=== PATIENT | female | born 1990 | race Caucasian/White ===

== ENCOUNTER 2017-08-02 06:09 | Emergency (ER) | payer SELFPAY | END 2017-08-02 07:16 | disposition home or self-care (01) | LOC: MADERS 06:09 | DX: J06.9 Acute upper respiratory infection, unspecified (principal); F17.210 Nicotine dependence, cigarettes, uncomplicated | CPT/HCPCS: 99283 ==

== ENCOUNTER 2017-09-01 08:34 | Emergency (ER) | payer SELFPAY ==
[2017-09-01] MEDS ORDERED: AMOXicillin 250 MG CAP ONE (09:00)
[2017-09-01] MEDS ORDERED: Naproxen 500 MG TAB ONE (09:00)
== END 2017-09-01 09:03 | disposition home or self-care (01) ==
LOC: MADERS 08:34
DX: K04.7 Periapical abscess without sinus (principal)
CPT/HCPCS: 99282

== ENCOUNTER 2018-02-10 15:31 | Emergency (ER) | payer SELFPAY ==
[2018-02-10] MEDS ORDERED: methylPREDNISolone Sod Succ/PF 125 MG/2 ML VIAL ONE (15:53)
[2018-02-10] MEDS ORDERED: Amoxicillin/Potassium Clav 875 MG TAB ONE (15:53)
== END 2018-02-10 16:12 | disposition home or self-care (01) ==
LOC: MADERS 15:31
DX: J20.9 Acute bronchitis, unspecified (principal); F17.210 Nicotine dependence, cigarettes, uncomplicated
CPT/HCPCS: 96374; J2930

== ENCOUNTER 2018-02-28 14:50 | Emergency (ER) | payer SELFPAY ==
[2018-02-28] MEDS ORDERED: Naproxen 500 MG TAB ONE (15:19)
== END 2018-02-28 15:40 | disposition home or self-care (01) ==
LOC: MADERS 14:50
DX: L50.0 Allergic urticaria (principal); F17.210 Nicotine dependence, cigarettes, uncomplicated
CPT/HCPCS: 96372; J1040

== ENCOUNTER 2018-11-07 08:18 | Emergency (ER) | payer SELFPAY ==
--- NOTE | 2018-11-07 09:16 | RAD ---
NECK SOFT TISSUES TWO VIEWS: INDICATIONS: Fall with neck injury. Throat pain. FINDINGS: The prevertebral soft tissue stripe is normal in caliber. The epiglottis is of appropriate caliber. No abnormal distention of the hypopharyngeal airway. There is straightening of the normal cervical curvature. IMPRESSION: No abnormal thickening of the prevertebral soft tissue stripe. POS: [facility]
== END 2018-11-07 09:15 | disposition home or self-care (01) ==
LOC: MADERS 08:18
DX: S10.93XA Contusion of unspecified part of neck, initial encounter (principal); F17.210 Nicotine dependence, cigarettes, uncomplicated; W22.8XXA Striking against or struck by other objects, initial encounter
CPT/HCPCS: 70360

== ENCOUNTER 2019-05-20 13:18 | Emergency (ER) | payer SELFPAY | END 2019-05-20 14:08 | disposition home or self-care (01) | LOC: MADERS 13:18 | DX: K08.89 Other specified disorders of teeth and supporting structures (principal); J02.9 Acute pharyngitis, unspecified; F17.210 Nicotine dependence, cigarettes, uncomplicated | CPT/HCPCS: 87430; 99281 ==

== ENCOUNTER 2019-11-04 18:58 | Emergency (ER) | payer SELFPAY | END 2019-11-04 19:15 | disposition home or self-care (01) | LOC: MADERS 18:58 | DX: H92.02 Otalgia, left ear (principal); F17.210 Nicotine dependence, cigarettes, uncomplicated | CPT/HCPCS: 99282 ==

== ENCOUNTER 2019-12-02 10:40 | Emergency (ER) | payer SELFPAY | END 2019-12-02 11:45 | disposition home or self-care (01) | LOC: MADERS 10:40 | DX: K02.9 Dental caries, unspecified (principal); F17.210 Nicotine dependence, cigarettes, uncomplicated | CPT/HCPCS: 99281 ==